=== PATIENT | male | born 1975 | race Caucasian/White ===

== ENCOUNTER 2023-12-08 15:17 | Emergency (ER) | payer MEDICAID, OTHER ==
[~2023-12-08] VITALS: Ht 170.2 cm; Wt 104.0 kg
[2023-12-08 16:32] VITALS: TEMP 98.3; O2SAT 95
[2023-12-08] MEDS ORDERED: NAPR500T7 MT (18:09)
[2023-12-08] MEDS ORDERED: AMOX1TAB16 MT (18:09)
[2023-12-08 18:34] VITALS: BP 120/80; PULSE 70; RESP 15; O2SAT 99
== END 2023-12-08 18:34 | disposition home or self-care (01) ==
LOC: ER 15:17
DX: S60.511A Abrasion of right hand, initial encounter (principal); W05.1XXA Fall from non-moving nonmotorized scooter, initial encounter; Y93.89 Activity, other specified; Y92.89 Other specified places as the place of occurrence of the external cause; Y99.8 Other external cause status
CPT/HCPCS: 29125; 73120; 99283